=== PATIENT | male | born 1950 | race Caucasian/White ===

== ENCOUNTER → 2016-11-12 | Outpatient (CLI) | payer MEDICARE, OTHER ==
[~2016-11-12] MED LIST: 00186-0370-20 IH; ASMANEX TW0.22 MG/A1 IH; ASPIRIN 81M81 MG/TA2 PO; COMBIRESP IH; NEURONTIN300 MG/CAP PO; PRINIVIL2.5 MG PO; ROXICODONE 55 MG/TAB PO; SINGULAIR; SINGULAIR 110 MG/TAB PO; ZOFRAN ODT4 MG PO; [UNRECOGNIZED DRUG - REMARK]
== END ==
LOC: WCC 09:57
DX: I87.2 Venous insufficiency (chronic) (peripheral) (principal); L97.819 Non-pressure chronic ulcer of other part of right lower leg with unspecified severity
CPT/HCPCS: A6207; A6209; G0463

== ENCOUNTER → 2016-11-21 | Outpatient (CLI) | payer MEDICARE, OTHER | LOC: WCC 10:37 | DX: Z01.89 Encounter for other specified special examinations (principal) ==

== ENCOUNTER → 2016-11-28 | Outpatient (CLI) | payer MEDICARE, OTHER | LOC: WCC 08:22 | DX: L97.909 Non-pressure chronic ulcer of unspecified part of unspecified lower leg with unspecified severity (principal) | CPT/HCPCS: 13919; 13973; 16847; 18867; A6199; A6209; G0463 ==

== ENCOUNTER → 2016-12-04 | Outpatient (CLI) | payer MEDICARE, OTHER | LOC: WCC 08:12 | DX: L97.819 Non-pressure chronic ulcer of other part of right lower leg with unspecified severity (principal); I87.2 Venous insufficiency (chronic) (peripheral) | CPT/HCPCS: 27513; A6456; G0463 ==

== ENCOUNTER → 2016-12-10 | Outpatient (CLI) | payer MEDICARE, OTHER | LOC: WCC 08:34 | DX: I87.2 Venous insufficiency (chronic) (peripheral) (principal); L97.819 Non-pressure chronic ulcer of other part of right lower leg with unspecified severity | CPT/HCPCS: 13919; 16847; 27513; A6456 ==

== ENCOUNTER → 2016-12-19 | Outpatient (CLI) | payer MEDICARE, OTHER | LOC: COL.VAS 09:52 | DX: I83.012 Varicose veins of right lower extremity with ulcer of calf (principal); L97.219 Non-pressure chronic ulcer of right calf with unspecified severity; Z94.5 Skin transplant status ==

== ENCOUNTER → 2016-12-19 | Outpatient (CLI) | payer MEDICARE, OTHER | LOC: WCC 09:43 | DX: L97.819 Non-pressure chronic ulcer of other part of right lower leg with unspecified severity (principal); I87.2 Venous insufficiency (chronic) (peripheral) | CPT/HCPCS: 16847; 18867; 27513; 27516; A6207; A6209; A6456; G0463 ==

== ENCOUNTER → 2016-12-26 | Outpatient (CLI) | payer MEDICARE, OTHER | LOC: WCC 08:38 | DX: L97.819 Non-pressure chronic ulcer of other part of right lower leg with unspecified severity (principal); I87.2 Venous insufficiency (chronic) (peripheral) | CPT/HCPCS: 13919; 18867; 27516; A6207; A6209; G0463 ==

== ENCOUNTER → 2017-01-02 | Outpatient (CLI) | payer MEDICARE, OTHER | LOC: WCC | DX: L97.519 Non-pressure chronic ulcer of other part of right foot with unspecified severity (principal); I87.2 Venous insufficiency (chronic) (peripheral) | CPT/HCPCS: 13919; 17717; A6212; G0463 ==

== ENCOUNTER → 2017-01-02 | Outpatient (CLI) | payer MEDICARE, OTHER | LOC: COL.VAS 09:24 | DX: Z01.89 Encounter for other specified special examinations (principal) ==

== ENCOUNTER → 2017-01-09 | Outpatient (CLI) | payer MEDICARE, OTHER ==
[~2017-01-09] MED LIST changes: +DAZIDOX20 MG PO; +DOXYCYCLINE 10100 MG PO; +NEURONTIN300 MG/CAP; +PRINZIDE 25 MG-1 TAB PO; +SENNA8.6 MG PO
== END ==
LOC: WCC 08:50
DX: I87.2 Venous insufficiency (chronic) (peripheral) (principal); L97.819 Non-pressure chronic ulcer of other part of right lower leg with unspecified severity
CPT/HCPCS: 27513; A6456

== ENCOUNTER 2017-01-16 07:04 | Outpatient (CLI) | payer MEDICARE, OTHER ==
[~2017-01-16] VITALS: Ht 177.8 cm; Wt 150.0 kg
[2017-01-16] VITALS (7 sets, daily range): BP systolic 131–159; BP diastolic 64–80; PULSE 57–79; TEMP 98
[~2017-01-16 07:04] MED LIST changes: -DAZIDOX20 MG PO; -DOXYCYCLINE 10100 MG PO; -NEURONTIN300 MG/CAP; -PRINZIDE 25 MG-1 TAB PO; -SENNA8.6 MG PO
[2017-01-16] MEDS ORDERED: COMBIRESP IH (08:17)
[2017-01-16] MEDS ORDERED: NEURONTIN300 MG/CAP (08:19)
[2017-01-16] MEDS ORDERED: SENNA8.6 MG PO (08:20)
[2017-01-16] MEDS ORDERED: PRINZIDE 25 MG-1 TAB PO (08:20)
[2017-01-16] MEDS ORDERED: DAZIDOX20 MG PO (08:22)
[2017-01-16] MEDS ORDERED: ROXICODONE 55 MG/TAB PO (08:23)
[2017-01-16 09:15] LABS: INR 1.1 (0.8-3.0); PROTHROMBIN TIME 11.8 SECONDS (9.7-12.8)
[2017-01-16 09:23] LABS: HEMATOCRIT 40.3 % (42.0-52.0); HEMOGLOBIN 13.1 g/dl (13.5-18.0); MEAN CELL VOLUME 93 fl (80.0-100.0); MEAN CORPUSCULAR HEMOGLOBIN 30 pg (27.0-31.0); MEAN CORPUSCULAR HGB CONC 33 g/dl (33.0-37.0); MEAN PLATELET VOLUME 10.5 fl (7.4-10.4); PLATELET COUNT 166 K/mm3 (130-400); RED BLOOD COUNT 4.35 M/mm3 (4.20-5.60); REDCELL DISTRIBUTION WIDTH-CV 13.2 % (11.5-14.5); WHITE BLOOD COUNT 8.4 K/mm3 (4.8-10.8)
[2017-01-16] MEDS ORDERED: DOXYCYCLINE 10100 MG PO (15:45)
== END 2017-01-16 16:34 | disposition home or self-care (01) ==
LOC: COL.VAS 07:04
PROVIDERS: Radiology Diagnostic Radiology
DX: I83.212 Varicose veins of right lower extremity with both ulcer of calf and inflammation (principal); G47.33 Obstructive sleep apnea (adult) (pediatric); J44.9 Chronic obstructive pulmonary disease, unspecified; I10 Essential (primary) hypertension; Z87.891 Personal history of nicotine dependence
CPT/HCPCS: C1894; J0171; J2250; J3010; J3370; J7030; J7050; J7120

== ENCOUNTER → 2017-01-23 | Outpatient (CLI) | payer MEDICARE, OTHER ==
[~2017-01-23] MED LIST changes: +DAZIDOX20 MG PO; +DOXYCYCLINE 10100 MG PO; +NEURONTIN300 MG/CAP; +PRINZIDE 25 MG-1 TAB PO; +SENNA8.6 MG PO
== END ==
LOC: WCC 09:25
DX: I87.2 Venous insufficiency (chronic) (peripheral) (principal)
CPT/HCPCS: 17717; 27510; A6197; A6212; G0463

== ENCOUNTER → 2017-01-23 | Outpatient (CLI) | payer MEDICARE, OTHER | LOC: COL.VAS 10:00 | DX: I87.2 Venous insufficiency (chronic) (peripheral) (principal); Z92.89 Personal history of other medical treatment ==

== ENCOUNTER 2017-04-28 17:55 | Emergency (ER) | payer OTHER, MEDICARE ==
[~2017-04-28] VITALS: Ht 177.8 cm; Wt 148.6 kg
[~2017-04-28 17:55] MED LIST changes: -NEURONTIN300 MG/CAP
[2017-04-28 17:58] VITALS: TEMP 98.1
[2017-04-28] MEDS ORDERED: OXYCONTIN 20MG20 MG PO (18:05)
[2017-04-28 19:24] VITALS: BP 187/91; PULSE 88
== END 2017-04-28 19:27 | disposition home or self-care (01) ==
LOC: COL.ER 17:55
DX: S82.831A Other fracture of upper and lower end of right fibula, initial encounter for closed fracture (principal); J44.9 Chronic obstructive pulmonary disease, unspecified; I10 Essential (primary) hypertension; Z87.828 Personal history of other (healed) physical injury and trauma; Z98.890 Other specified postprocedural states; Z79.82 Long term (current) use of aspirin; V43.52XA Car driver injured in collision with other type car in traffic accident, initial encounter; Y93.I9 Activity, other involving external motion
CPT/HCPCS: A9284

== ENCOUNTER → 2017-05-05 | Outpatient (CLI) | payer OTHER, MEDICARE ==
[~2017-05-05] MED LIST changes: +OXYCONTIN 20MG20 MG PO
== END ==
LOC: COL.RAD 11:13
DX: R91.1 Solitary pulmonary nodule (principal)
CPT/HCPCS: Q9967

== ENCOUNTER 2017-05-13 06:53 | Outpatient (CLI) | payer MEDICARE, OTHER ==
[2017-05-13] VITALS (19 sets, daily range): BP systolic 108–172; BP diastolic 54–90; PULSE 57–78; TEMP 98
[~2017-05-13] VITALS: Ht 177.8 cm; Wt 154.0 kg
[~2017-05-13 06:53] MED LIST changes: +00186-0372-20 IH
== END 2017-05-13 11:55 | disposition home or self-care (01) ==
LOC: COL.RAD 06:53
DX: R91.1 Solitary pulmonary nodule (principal)
CPT/HCPCS: J3010

== ENCOUNTER → 2017-06-10 | Outpatient (CLI) | payer MEDICARE, OTHER ==
[~2017-06-10] VITALS: Ht 177.8 cm; Wt 154.2 kg
[2017-06-10 09:56] VITALS: BP 183/88; PULSE 64
[2017-06-10 11:05] VITALS: BP 170/82; PULSE 79
[2017-06-10 11:37] LABS: PLEURAL FLUID RBC 13000 /mm3 (0-0); PLEURAL FLUID WBC 4670 /mm3
[2017-06-10 11:38] LABS: PLEURAL FLUID APPEARANCE HAZY; PLEURAL FLUID COLOR AMBER
[2017-06-10 11:50] LABS: TOTAL PROTEIN,PLEURAL FLUID 4.6 gm/dL
== END ==
LOC: COL.RAD 09:38
PROVIDERS: Internal Medicine
DX: C34.12 Malignant neoplasm of upper lobe, left bronchus or lung (principal); J90 Pleural effusion, not elsewhere classified
CPT/HCPCS: 19804

== ENCOUNTER → 2017-10-20 | Outpatient (CLI) | payer MEDICARE, OTHER | LOC: COL.RAD 10:26 | DX: R91.1 Solitary pulmonary nodule (principal); J90 Pleural effusion, not elsewhere classified; K80.20 Calculus of gallbladder without cholecystitis without obstruction; C34.12 Malignant neoplasm of upper lobe, left bronchus or lung; Z79.82 Long term (current) use of aspirin; Z79.899 Other long term (current) drug therapy | CPT/HCPCS: Q9967 ==

== ENCOUNTER → 2018-08-11 | Outpatient (CLI) | payer MEDICARE, OTHER | LOC: ZCOL.LAB 09:38 | DX: I87.319 Chronic venous hypertension (idiopathic) with ulcer of unspecified lower extremity (principal) ==

== ENCOUNTER 2019-05-21 10:53 | Emergency (ER) | payer MEDICARE, OTHER ==
[~2019-05-21] VITALS: Ht 177.8 cm; Wt 151.8 kg
[2019-05-21 11:22] VITALS: BP 172/71; TEMP 97.2
[2019-05-21 12:29] LABS: BASO % 0.5 % (0.0-2.0); EOS # 0.2 (0.0-0.7); EOS % 2.4 % (0-4.0); GRAN # 4.2 (1.4-6.5); GRAN % 63.2 % (42.2-75.2); HEMATOCRIT 40.8 % (42.0-52.0); HEMOGLOBIN 13.2 g/dl (13.5-18.0); LYMPH # 1.7 (1.2-3.4); LYMPH % 25.3 % (20.0-51.0); MEAN CELL VOLUME 95 fl (80.0-100.0); MEAN CORPUSCULAR HEMOGLOBIN 31 pg (27.0-31.0); MEAN CORPUSCULAR HGB CONC 32 g/dl (33.0-37.0); MEAN PLATELET VOLUME 10.3 fl (7.4-10.4); MONO # 0.6 (0.1-0.6); MONO % 8.3 % (1.7-9.3); PLATELET COUNT 159 K/mm3 (130-400); RED BLOOD COUNT 4.28 M/mm3 (4.20-5.60); REDCELL DISTRIBUTION WIDTH-CV 12.8 % (11.5-14.5)
[2019-05-21 12:42] LABS: ALBUMIN 4.3 gm/dL (3.5-5.0); BILIRUBIN,TOTAL 0.6 mg/dL (0.0-1.0); C-REACTIVE PROTEIN 1.3 mg/dL (0.0-0.9); CREATININE, serum 0.94 (0.66-1.25); POTASSIUM 4.2 mmol/L (3.4-5.0); TOTAL PROTEIN 7.8 gm/dL (6.4-8.2)
[2019-05-21 13:00] VITALS: PULSE 65
[2019-05-21] MEDS ORDERED: DOXYCYCLINE 10100 MG PO (13:01)
== END 2019-05-21 13:08 | disposition home or self-care (01) ==
LOC: COL.ER 10:53
PROVIDERS: Nurse Practitioner
DX: L03.115 Cellulitis of right lower limb (principal); J44.9 Chronic obstructive pulmonary disease, unspecified; Z98.890 Other specified postprocedural states; Z87.891 Personal history of nicotine dependence; Z79.82 Long term (current) use of aspirin

== ENCOUNTER → 2020-04-26 | Outpatient (CLI) | payer MEDICARE, OTHER | LOC: ZCOL.LAB 16:30 | DX: L97.909 Non-pressure chronic ulcer of unspecified part of unspecified lower leg with unspecified severity (principal) ==

== ENCOUNTER → 2020-08-02 | Outpatient (CLI) | payer MEDICARE, OTHER | LOC: ZCOL.LAB 16:25 | DX: L97.909 Non-pressure chronic ulcer of unspecified part of unspecified lower leg with unspecified severity (principal) ==

== ENCOUNTER → 2021-06-06 | Outpatient (CLI) | payer MEDICARE, OTHER | LOC: ZCOL.LAB 15:50 | DX: I89.0 Lymphedema, not elsewhere classified (principal); I87.311 Chronic venous hypertension (idiopathic) with ulcer of right lower extremity ==

== ENCOUNTER 2023-05-15 13:55 | Emergency (ER) | payer MEDICARE, OTHER ==
[~2023-05-15] VITALS: Ht 177.8 cm; Wt 150.0 kg
[~2023-05-15 13:55] MED LIST changes: +CRESTOR 10MG10 MG PO; +HYGROTON 2525 MG/TAB; +NARCAN .4MG0.4 MG/ML IJ; +PREDFORTE10ML
[2023-05-15 14:03] VITALS: TEMP 98.3
[2023-05-15 15:11] LABS: BASO % 0.4 % (0.0-2.0); EOS # 0.3 K/mm3 (0.0-0.7); EOS % 3.4 % (0.0-4.0); GRAN # 5.7 K/mm3 (1.4-6.5); GRAN % 66.7 % (42.2-75.2); HEMATOCRIT 39.8 % (42.0-52.0); HEMOGLOBIN 13.6 g/dl (13.5-18.0); LYMPH # 1.3 K/mm3 (1.2-3.4); LYMPH % 15.5 % (20.0-51.0); MEAN CELL VOLUME 93 fl (80.0-100.0); MEAN CORPUSCULAR HEMOGLOBIN 32 pg (27-31); MEAN CORPUSCULAR HGB CONC 34 g/dl (33.0-37.0); MONO # 1.1 K/mm3 (0.1-0.6); MONO % 13.5 % (1.7-9.3); PLATELET COUNT 184 K/mm3 (130-400); REDCELL DISTRIBUTION WIDTH-CV 12.8 % (11.5-14.5)
[2023-05-15 15:19] LABS: ALBUMIN 3.6 gm/dL (3.4-4.8); BILIRUBIN,TOTAL 0.7 mg/dL (0.2-1.2); C-REACTIVE PROTEIN 10.05 mg/dL (0.00-0.50); CALCIUM 9.5 mg/dL (8.4-10.2); CREATININE, serum 1.1 mg/dL (0.72-1.25); TOTAL PROTEIN 7.4 gm/dL (6.2-8.1)
[2023-05-15 15:20] LABS: ERYTHROCYTE SEDIMENTATION RATE 49 mm/hr (0-30)
[2023-05-15] MEDS ORDERED: CLEOCIN HCL300 MG PO (16:45)
[2023-05-15 17:20] VITALS: BP 150/78; PULSE 72
== END 2023-05-15 17:25 | disposition home or self-care (01) ==
LOC: COL.ER 13:55
PROVIDERS: Physician Assistant
DX: L03.116 Cellulitis of left lower limb (principal); Z87.891 Personal history of nicotine dependence

== ENCOUNTER → 2023-11-14 | Outpatient (CLI) | payer MEDICARE, OTHER ==
[~2023-11-14] MED LIST changes: +CLEOCIN HCL300 MG PO; +Gadoterate 20 ML VIAL IV ONE
== END ==
LOC: COL.RAD 12:19
DX: S91.302A Unspecified open wound, left foot, initial encounter (principal); X58.XXXA Exposure to other specified factors, initial encounter
CPT/HCPCS: A9575